=== PATIENT | male | born 1935 | race Two or more races ===

== ENCOUNTER 2022-01-16 21:44 | Inpatient (IN) | payer MEDICARE, OTHER ==
[~2022-01-16] VITALS: Ht 170.2 cm; Wt 66.2 kg
[2022-01-16] MEDS ORDERED: METF-494 PO (22:15)
[2022-01-16] MEDS ORDERED: MEMA10TA PO (22:15)
[2022-01-16] MEDS ORDERED: QUET50TA PO (22:16)
[2022-01-16] MEDS ORDERED: LINA5TAB PO (22:17)
[2022-01-16] MEDS ORDERED: QUET25TA PO (22:17)
[2022-01-16 22:18] LABS: *BILIRUBIN,URIN NEGATIVE (NEGATIVE); *BLOOD, URINE 1+ (NEGATIVE); *COLOR,URINE YELLOW (YELLOW); *KETONES,URINE NEGATIVE (NEGATIVE); *UROBILINOGEN,URINE 0.2 E.U./dl (NORMAL); LEUKOCYTE ESTERASE ,URINE NEGATIVE (NEGATIVE); NITRITE, URINE NEGATIVE (NEGATIVE); PH,URINE 5.5 (5.0-8.0); UGLUCOSE NEGATIVE (NEGATIVE)
[2022-01-16] MEDS ORDERED: DONE5TAB34 PO (22:18)
[2022-01-16] MEDS ORDERED: DIVA125T2 PO (22:18)
[2022-01-16 22:26] LABS: HEMATOCRIT 34.4 % (36.7-47.1); MEAN CORPUSCULAR HEMOGLOBIN 32.5 uug (23.8-33.4); MEAN CORPUSCULAR VOLUME 97.1 fL (73.0-96.2); PLATELET COUNT (AUTO) 217 K/uL (152-348)
[2022-01-16 22:28] LABS: CARBON DIOXIDE 24 mmol/L (21-32); CHLORIDE 107 mmol/L (98-107); CREATININE 1.3 mg/dL (0.6-1.3); GLUCOSE 162 mg/dL (74-106); POTASSIUM 4.3 mmol/L (3.5-5.1); UREA NITROGEN, BLOOD 24 mg/dL (7-18)
[2022-01-16 22:32] LABS: *AMPHETAMINE, URINE NEGATIVE (NEGATIVE); *CANNABINOID, URINE NEGATIVE (NEGATIVE); *CLARITY,URINE HAZY (CLEAR); *COCCAINE, URINE NEGATIVE (NEGATIVE); *OPIATE, URINE NEGATIVE (NEGATIVE); *PHENCYCLIDINE SCREEN,URINE NEGATIVE (NEGATIVE)
[2022-01-16 22:33] LABS: ALANINE AMINOTRANSFERASE 26 U/L (16-63); ALKALINE PHOSPHATASE 60 U/L (50-136); ASPARTATE AMINOTRANSFERASE 10 U/L (15-37); BILIRUBIN,DIRECT < 0.1 mg/dL (0.0-0.2); BILIRUBIN,TOTAL 0.3 mg/dL (0.2-1.0)
[2022-01-16 22:34] LABS: ACETAMINOPHEN < 2.0 ug/mL (10-30)
[2022-01-16 22:43] LABS: ETHANOL < 3 MG/DL (0-0)
[2022-01-16] MEDS ORDERED: MAGNESIUM HYDROXIDE 30 ML LIQUID UDC PO PRN (23:45)
[2022-01-16] MEDS ORDERED: MAG HYDROX/AL HYDROX/SIMETH 30 ML LIQUID UDC PO PRN (23:45)
[2022-01-16] MEDS ORDERED: BLOOD SUGAR DIAGNOSTIC 1 EACH STRIP VI ONE (23:45)
[2022-01-17 07:30] VITALS: BP 111/42
[2022-01-17] MEDS ORDERED: FENO160T PO (07:53)
[2022-01-17] MEDS ORDERED: GLIM2TAB31 PO (07:53)
[2022-01-17] MEDS ORDERED: CYAN-51 PO (07:53)
[2022-01-17] MEDS ORDERED: METF-440 PO (07:53)
[2022-01-17] MEDS ORDERED: ASPI81TA31 PO (07:53)
[2022-01-17] MEDS ORDERED: ROSU20TA2 PO (07:53)
[2022-01-17] MEDS ORDERED: LISI2.5T14 PO (07:53)
[2022-01-17] MEDS: LISINOPRIL 5 MG TABLET PO SCH (09:00)
[2022-01-17] MEDS: CYANOCOBALAMIN 1,000 MCG TABLET PO SCH (09:33)
[2022-01-17] MEDS: LINAGLIPTIN 5 MG TABLET PO SCH (09:33)
[2022-01-17] MEDS: ASPIRIN 81 MG TAB.CHEW PO SCH (09:33)
[2022-01-17] MEDS: GLIMEPIRIDE 2 MG TABLET PO SCH ×2 (09:34→17:01)
[2022-01-17] MEDS: FENOFIBRATE NANOCRYSTALLIZED 145 MG TABLET PO SCH (09:35)
[2022-01-17] MEDS: METFORMIN HCL 500 MG TABLET PO SCH ×2 (09:36→17:00)
[2022-01-17 09:39] LABS: BACTERIA,URINE NONE SEEN /HPF (NONE SEEN); SQUAMOUS EPITHELIAL CELL,UR NONE SEEN /HPF (NONE SEEN); WBC,URINE NONE SEEN /HPF (0-3)
[2022-01-17] MEDS: DIVALPROEX SPRINKLE 125 MG CAP.SPRINK PO SCH ×2 (10:55→20:32)
[2022-01-17] MEDS: MEMANTINE HCL 10 MG TABLET PO SCH ×2 (11:05→20:03)
[2022-01-17 16:00] VITALS: BP 120/60
[2022-01-17] MEDS: LORAZEPAM 1 MG TABLET PO PRN (19:40)
[2022-01-17 19:55] VITALS: BP 120/53
[2022-01-17] MEDS: DONEPEZIL 5 MG TABLET PO SCH (20:31)
[2022-01-17] MEDS: ATORVASTATIN 10 MG TABLET PO SCH (20:32)
[2022-01-17] MEDS: QUETIAPINE FUMARATE 100 MG TABLET PO SCH (20:32)
[2022-01-17] MEDS: ACETAMINOPHEN 325 MG TABLET PO PRN (21:34)
[2022-01-17] MEDS: ZOLPIDEM 5 MG TABLET PO PRN (21:34)
[2022-01-18 07:51] VITALS: BP 128/55
[2022-01-18] MEDS: LISINOPRIL 5 MG TABLET PO SCH (08:47)
[2022-01-18] MEDS: DIVALPROEX SPRINKLE 125 MG CAP.SPRINK PO SCH ×2 (08:47→20:24)
[2022-01-18] MEDS: MEMANTINE HCL 10 MG TABLET PO SCH ×2 (08:47→16:56)
[2022-01-18] MEDS: CYANOCOBALAMIN 1,000 MCG TABLET PO SCH (08:47)
[2022-01-18] MEDS: ASPIRIN 81 MG TAB.CHEW PO SCH (08:47)
[2022-01-18] MEDS: LINAGLIPTIN 5 MG TABLET PO SCH (08:47)
[2022-01-18] MEDS: METFORMIN HCL 500 MG TABLET PO SCH ×2 (08:47→17:05)
[2022-01-18] MEDS: GLIMEPIRIDE 2 MG TABLET PO SCH ×2 (08:47→16:56)
[2022-01-18] MEDS: FENOFIBRATE NANOCRYSTALLIZED 145 MG TABLET PO SCH (08:48)
[2022-01-18 17:24] VITALS: BP 93/48
[2022-01-18] MEDS ORDERED: METFORMIN HCL 850 MG TABLET PO SCH (18:00)
[2022-01-18 19:47] VITALS: BP 115/54
[2022-01-18] MEDS: ATORVASTATIN 10 MG TABLET PO SCH (20:24)
[2022-01-18] MEDS: LORAZEPAM 1 MG TABLET PO PRN (20:25)
[2022-01-18] MEDS: DONEPEZIL 5 MG TABLET PO SCH (20:25)
[2022-01-18] MEDS: QUETIAPINE FUMARATE 100 MG TABLET PO SCH (20:25)
[2022-01-19 07:35] VITALS: BP 103/36
[2022-01-19] MEDS: DIVALPROEX SPRINKLE 125 MG CAP.SPRINK PO SCH ×2 (08:40→20:42)
[2022-01-19] MEDS: MEMANTINE HCL 10 MG TABLET PO SCH ×2 (08:41→16:46)
[2022-01-19] MEDS: GLIMEPIRIDE 2 MG TABLET PO SCH ×2 (08:41→16:46)
[2022-01-19] MEDS: CYANOCOBALAMIN 1,000 MCG TABLET PO SCH (08:41)
[2022-01-19] MEDS: LINAGLIPTIN 5 MG TABLET PO SCH (08:41)
[2022-01-19] MEDS: ASPIRIN 81 MG TAB.CHEW PO SCH (08:41)
[2022-01-19] MEDS: FENOFIBRATE NANOCRYSTALLIZED 145 MG TABLET PO SCH (08:41)
[2022-01-19] MEDS: METFORMIN HCL 500 MG TABLET PO SCH ×2 (08:41→17:02)
[2022-01-19] MEDS: LISINOPRIL 5 MG TABLET PO SCH (08:42)
[2022-01-19] MEDS: ACETAMINOPHEN 325 MG TABLET PO PRN (13:44)
[2022-01-19 15:48] VITALS: BP 126/63
[2022-01-19 20:19] VITALS: BP 100/52
[2022-01-19] MEDS: QUETIAPINE FUMARATE 100 MG TABLET PO SCH (20:42)
[2022-01-19] MEDS: DONEPEZIL 5 MG TABLET PO SCH (20:42)
[2022-01-19] MEDS: ATORVASTATIN 10 MG TABLET PO SCH (20:42)
[2022-01-20 07:30] VITALS: BP 117/47
[2022-01-20] MEDS: ASPIRIN 81 MG TAB.CHEW PO SCH (08:26)
[2022-01-20] MEDS: LINAGLIPTIN 5 MG TABLET PO SCH (08:26)
[2022-01-20] MEDS: CYANOCOBALAMIN 1,000 MCG TABLET PO SCH (08:27)
[2022-01-20] MEDS: MEMANTINE HCL 10 MG TABLET PO SCH ×2 (08:27→17:05)
[2022-01-20] MEDS: METFORMIN HCL 500 MG TABLET PO SCH ×2 (08:27→17:01)
[2022-01-20] MEDS: FENOFIBRATE NANOCRYSTALLIZED 145 MG TABLET PO SCH (08:27)
[2022-01-20] MEDS: GLIMEPIRIDE 2 MG TABLET PO SCH ×2 (08:27→17:01)
[2022-01-20] MEDS: DIVALPROEX SPRINKLE 125 MG CAP.SPRINK PO SCH ×2 (08:27→20:24)
[2022-01-20] MEDS: LISINOPRIL 5 MG TABLET PO SCH (08:28)
[2022-01-20 16:00] VITALS: BP 96/47
[2022-01-20] MEDS: ATORVASTATIN 10 MG TABLET PO SCH (20:24)
[2022-01-20] MEDS: QUETIAPINE FUMARATE 100 MG TABLET PO SCH (20:24)
[2022-01-20] MEDS: DONEPEZIL 5 MG TABLET PO SCH (20:24)
[2022-01-20 20:27] VITALS: BP 112/55
[2022-01-21 07:30] VITALS: BP 140/60
[2022-01-21] MEDS: LINAGLIPTIN 5 MG TABLET PO SCH (08:58)
[2022-01-21] MEDS: MEMANTINE HCL 10 MG TABLET PO SCH ×2 (08:58→16:12)
[2022-01-21] MEDS: CYANOCOBALAMIN 1,000 MCG TABLET PO SCH (08:58)
[2022-01-21] MEDS: METFORMIN HCL 500 MG TABLET PO SCH ×2 (08:58→17:49)
[2022-01-21] MEDS: DIVALPROEX SPRINKLE 125 MG CAP.SPRINK PO SCH ×2 (08:58→20:35)
[2022-01-21] MEDS: ASPIRIN 81 MG TAB.CHEW PO SCH (08:58)
[2022-01-21] MEDS: LISINOPRIL 5 MG TABLET PO SCH (08:59)
[2022-01-21] MEDS: FENOFIBRATE NANOCRYSTALLIZED 145 MG TABLET PO SCH (09:10)
[2022-01-21] MEDS: GLIMEPIRIDE 2 MG TABLET PO SCH ×2 (09:10→16:12)
[2022-01-21 16:00] VITALS: BP 97/49
[2022-01-21 19:47] VITALS: BP 109/52
[2022-01-21] MEDS: DONEPEZIL 5 MG TABLET PO SCH (20:35)
[2022-01-21] MEDS: ATORVASTATIN 10 MG TABLET PO SCH (20:35)
[2022-01-21] MEDS: QUETIAPINE FUMARATE 100 MG TABLET PO SCH (20:36)
[2022-01-22 07:30] VITALS: BP 120/65
[2022-01-22] MEDS: LINAGLIPTIN 5 MG TABLET PO SCH (08:37)
[2022-01-22] MEDS: METFORMIN HCL 500 MG TABLET PO SCH ×2 (08:38→17:19)
[2022-01-22] MEDS: ASPIRIN 81 MG TAB.CHEW PO SCH (08:38)
[2022-01-22] MEDS: GLIMEPIRIDE 2 MG TABLET PO SCH ×2 (08:38→16:39)
[2022-01-22] MEDS: MEMANTINE HCL 10 MG TABLET PO SCH ×2 (08:38→16:39)
[2022-01-22] MEDS: DIVALPROEX SPRINKLE 125 MG CAP.SPRINK PO SCH ×2 (08:40→20:18)
[2022-01-22] MEDS: CYANOCOBALAMIN 1,000 MCG TABLET PO SCH (08:40)
[2022-01-22] MEDS: FENOFIBRATE NANOCRYSTALLIZED 145 MG TABLET PO SCH (08:40)
[2022-01-22] MEDS: LISINOPRIL 5 MG TABLET PO SCH (08:41)
[2022-01-22 15:11] VITALS: BP 103/56
[2022-01-22] MEDS: DONEPEZIL 5 MG TABLET PO SCH (20:19)
[2022-01-22] MEDS: QUETIAPINE FUMARATE 100 MG TABLET PO SCH (20:19)
[2022-01-22] MEDS: ATORVASTATIN 10 MG TABLET PO SCH (20:19)
[2022-01-22 22:04] VITALS: BP 111/63
[2022-01-22] MEDS: ACETAMINOPHEN 325 MG TABLET PO PRN (23:14)
[2022-01-22] MEDS: ZOLPIDEM 5 MG TABLET PO PRN (23:14)
[2022-01-23 07:33] VITALS: BP 130/64
[2022-01-23] MEDS: GLIMEPIRIDE 2 MG TABLET PO SCH ×2 (08:39→16:28)
[2022-01-23] MEDS: FENOFIBRATE NANOCRYSTALLIZED 145 MG TABLET PO SCH (08:39)
[2022-01-23] MEDS: ASPIRIN 81 MG TAB.CHEW PO SCH (08:39)
[2022-01-23] MEDS: METFORMIN HCL 500 MG TABLET PO SCH ×2 (08:39→17:24)
[2022-01-23] MEDS: LISINOPRIL 5 MG TABLET PO SCH (08:40)
[2022-01-23] MEDS: CYANOCOBALAMIN 1,000 MCG TABLET PO SCH (08:40)
[2022-01-23] MEDS: LINAGLIPTIN 5 MG TABLET PO SCH (08:40)
[2022-01-23] MEDS: DIVALPROEX SPRINKLE 125 MG CAP.SPRINK PO SCH ×2 (08:40→20:04)
[2022-01-23] MEDS: MEMANTINE HCL 10 MG TABLET PO SCH ×2 (08:42→16:28)
[2022-01-23] MEDS: GLUCERNA SHAKE 237 ML CAN PO SCH (15:57)
[2022-01-23 16:22] VITALS: BP 151/56
[2022-01-23] MEDS: ATORVASTATIN 10 MG TABLET PO SCH (20:03)
[2022-01-23] MEDS: DONEPEZIL 5 MG TABLET PO SCH (20:04)
[2022-01-23] MEDS: QUETIAPINE FUMARATE 100 MG TABLET PO SCH (20:04)
[2022-01-23 20:10] VITALS: BP 145/66
[2022-01-24 07:53] VITALS: BP 109/56
[2022-01-24] MEDS: METFORMIN HCL 500 MG TABLET PO SCH ×2 (08:10→17:05)
[2022-01-24] MEDS: DIVALPROEX SPRINKLE 125 MG CAP.SPRINK PO SCH ×2 (08:11→20:59)
[2022-01-24] MEDS: FENOFIBRATE NANOCRYSTALLIZED 145 MG TABLET PO SCH (08:11)
[2022-01-24] MEDS: MEMANTINE HCL 10 MG TABLET PO SCH ×2 (08:11→16:42)
[2022-01-24] MEDS: GLIMEPIRIDE 2 MG TABLET PO SCH ×2 (08:11→16:42)
[2022-01-24] MEDS: ASPIRIN 81 MG TAB.CHEW PO SCH (08:11)
[2022-01-24] MEDS: CYANOCOBALAMIN 1,000 MCG TABLET PO SCH (08:11)
[2022-01-24] MEDS: LINAGLIPTIN 5 MG TABLET PO SCH (08:11)
[2022-01-24] MEDS: GLUCERNA SHAKE 237 ML CAN PO SCH (08:12)
[2022-01-24] MEDS: LISINOPRIL 5 MG TABLET PO SCH (08:13)
[2022-01-24 17:45] VITALS: BP 97/57
[2022-01-24 20:25] VITALS: BP 120/64
[2022-01-24] MEDS: ATORVASTATIN 10 MG TABLET PO SCH (20:59)
[2022-01-24] MEDS: QUETIAPINE FUMARATE 100 MG TABLET PO SCH (20:59)
[2022-01-24] MEDS: DONEPEZIL 5 MG TABLET PO SCH (20:59)
[2022-01-25 07:30] VITALS: BP 102/52
[2022-01-25] MEDS: LINAGLIPTIN 5 MG TABLET PO SCH (08:33)
[2022-01-25] MEDS: FENOFIBRATE NANOCRYSTALLIZED 145 MG TABLET PO SCH (08:33)
[2022-01-25] MEDS: ASPIRIN 81 MG TAB.CHEW PO SCH (08:33)
[2022-01-25] MEDS: MEMANTINE HCL 10 MG TABLET PO SCH ×2 (08:33→16:24)
[2022-01-25] MEDS: DIVALPROEX SPRINKLE 125 MG CAP.SPRINK PO SCH ×2 (08:34→20:31)
[2022-01-25] MEDS: LISINOPRIL 5 MG TABLET PO SCH ×2 (08:35→09:30)
[2022-01-25] MEDS: CYANOCOBALAMIN 1,000 MCG TABLET PO SCH (08:36)
[2022-01-25] MEDS: GLIMEPIRIDE 2 MG TABLET PO SCH ×2 (08:36→16:24)
[2022-01-25] MEDS: METFORMIN HCL 500 MG TABLET PO SCH ×2 (08:36→16:27)
[2022-01-25] MEDS: GLUCERNA SHAKE 237 ML CAN PO SCH (08:37)
[2022-01-25 15:06] VITALS: BP 9/49
[2022-01-25 20:00] VITALS: BP 111/37
[2022-01-25] MEDS: QUETIAPINE FUMARATE 100 MG TABLET PO SCH (20:31)
[2022-01-25] MEDS: ATORVASTATIN 10 MG TABLET PO SCH (20:31)
[2022-01-25] MEDS: DONEPEZIL 5 MG TABLET PO SCH (20:31)
[2022-01-26 08:30] VITALS: BP 116/55
[2022-01-26] MEDS: METFORMIN HCL 500 MG TABLET PO SCH (08:30)
[2022-01-26] MEDS: LINAGLIPTIN 5 MG TABLET PO SCH (08:30)
[2022-01-26] MEDS: ASPIRIN 81 MG TAB.CHEW PO SCH (08:31)
[2022-01-26] MEDS: GLIMEPIRIDE 2 MG TABLET PO SCH (08:31)
[2022-01-26] MEDS: DIVALPROEX SPRINKLE 125 MG CAP.SPRINK PO SCH (08:31)
[2022-01-26] MEDS: CYANOCOBALAMIN 1,000 MCG TABLET PO SCH (08:31)
[2022-01-26] MEDS: MEMANTINE HCL 10 MG TABLET PO SCH (08:31)
[2022-01-26 08:32] VITALS: BP 116/55
[2022-01-26] MEDS: LISINOPRIL 5 MG TABLET PO SCH (08:32)
[2022-01-26] MEDS: FENOFIBRATE NANOCRYSTALLIZED 145 MG TABLET PO SCH (08:32)
[2022-01-26] MEDS: GLUCERNA SHAKE 237 ML CAN PO SCH (08:34)
== END 2022-01-26 13:45 | disposition home or self-care (01) | DRG 885 ==
LOC: ER 22:18 → GPS 23:00
PROVIDERS: ADMIT Psychiatry & Neurology Psychiatry; ATTEND Nurse Practitioner Acute Care
DX: F29 Unspecified psychosis not due to a substance or known physiological condition (principal); N17.9 Acute kidney failure, unspecified; E11.65 Type 2 diabetes mellitus with hyperglycemia; F03.92 Unspecified dementia, unspecified severity, with psychotic disturbance; Z79.84 Long term (current) use of oral hypoglycemic drugs; D64.9 Anemia, unspecified; E78.5 Hyperlipidemia, unspecified; E88.09 Other disorders of plasma-protein metabolism, not elsewhere classified; F31.9 Bipolar disorder, unspecified
CPT/HCPCS: 36415; 80164; 85025; 93005; A4663; G0480